=== PATIENT | female | born 1945 | race Caucasian/White ===

== ENCOUNTER 2024-03-28 10:01 | Emergency (ER) | payer MEDICARE, OTHER, SELFPAY ==
[2024-03-28 10:12] VITALS: BP 123/78
[2024-03-28 11:15] VITALS: BMI 28.0
[2024-03-28 11:19] VITALS: BP 141/68
[2024-03-28 12:00] VITALS: BP 126/64
--- NOTE | 2024-03-28 12:57 | ED.GENMED ---
History of Present Illness
General
Chief Complaint: Head Injury
Source: patient
Exam Limitations: none
Time Seen by Provider: 03/28/24 11:00
Nursing documentation reviewed up to this point in time: agreed with
History of Present Illness
History of Present Illness:
78-year-old female presenting to the emergency department 2 days after a trip and fall where she hit her head did not lose consciousness has had some mild ongoing headache and nausea. She was seen in urgent care earlier today but sent to the ER for
further assessment. Denies any numbness weakness neck pain not on blood thinners.
Past History
Past History
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
ED Past Surgical History: Bowel resection (Sigmoidectomy), Cholecystectomy and Gynecological (Hysterectomy and fallopian tubes removed)
Social History
Tobacco: Non-smoker
Alcohol: Occasional
Personal:
Living: with family
Review of Systems
Review of Systems
Allergies reviewed?: Yes
All Other Systems: ROS reviewed and negative except as documented in HPI and ROS
Phy Exam
Physical Exam
Physical Exam:
GENERAL: Alert , in no apparent distress
EYE: pupils equal and reactive
NECK: Supple, no significant adenopathy.
ENT: o/p clr, mmm.
CARDIAC: Regular rate and rhythm .
LUNGS: Clear breath sounds bilaterally, no acute respiratory distress, no wheezes/rales/rhonchi
ABDOMEN: Soft, without focal tenderness, no r/g, no cvat
NEUROLOGICAL: Alert and oriented, no focal neuro deficits
SKIN: Warm and dry, skin intact.
MUSCULOSKELETAL: No edema, well perfused.
PSYCH: Normal and appropriate interaction.
Course
Orders/Labs/Results
Orders:
Orders
03/28/24 11:11
CT Head W/o Iv Contrast Urgent
Comment:
Reason For Exam: fall hit face
Vital Signs
Initial and Last Documented VS:
Initial Vital Signs
Temp Pulse Resp BP Pulse Ox
98.3 F 70 22 123/78 98
03/28/24 10:12 03/28/24 10:12 03/28/24 10:12 03/28/24 10:12 03/28/24 10:12
Last Documented Vital Signs
Temp Pulse Resp BP Pulse Ox
98.3 F 61 13 130/70 97
03/28/24 10:12 03/28/24 13:00 03/28/24 13:00 03/28/24 13:00 03/28/24 13:00
MDM/Problems Addressed
MDM/Problems Addressed:
78f coming in 2 days after trip and fall. Well appearing here. Not on thinners. No major trauam to face, small scrap to nasal bridge, no nasal septal hematoma. CT neg. Noevidence of emergent injury. Stable for DC
*Critical Care Note
Total Time (30-74mins, 75-104mins- exclusive of procedures): Not Applicable
ED Attending Note
-
Portions of this chart may have been created with voice recognition software.� Occasional wrong word or��sound alike� substitutions may have occurred due to the inherent limitations of voice recognition software.
Discharge Plan
Departure
Patient Disposition: Home (Routine Discharge)
Date of Disposition: 03/28/24
Time of Disposition: 12:57
Patient with high blood pressure during this ER visit?: No
Condition: Good
Covid-19: Not Applicable
Discharge Problem:
Fall, Head injury
Instructions: Head Injury in Adults (DC)
Prescriptions:
No Action
fluoxetine [Prozac] 40 MG capsule
80 mg PO DAILY
omeprazole 40 MG capsule,delayed release(DR/EC)
40 mg PO DAILYPRN PRN (Reason: GERD)
fosinopril [Monopril] 40 MG tablet
40 mg PO DAILY
ibuprofen 200 MG tablet
200 mg PO Q4HPRN PRN (Reason: HEADACHE)
B-complex with vitamin C 1 CAPLET tablet
1 cap PO DAILY
multivitamin with folic acid [Tab-A-Soco] 1 TABLET tablet
1 tab PO DAILY
fluticasone propionate 1 SPRAY spray,suspension
1 spray intranasal DAILYPRN PRN (Reason: ALLERGIES)
loratadine 10 MG tablet
10 mg PO DAILYPRN PRN (Reason: ALLERGIES)
Referrals:
Marcia Velasquez MD [Family Provider] -
Activity Restrictions/Additional Instructions:
you came to the ER with concerns of head injury. your Ct was normal. Return for any new or worsening issues.
Interventions
Interventions:
*Risk Screen - Suicide Last Done: 03/28/24 10:17
*General Assessment Last Done: 03/28/24 10:17
*Neglect/Abuse Screening Last Done: 03/28/24 10:17
ED- Fall Risk Assessment Last Done: 03/28/24 13:19
*ED COVID-19 Vaccine History Last Done: 03/28/24 11:16
*Nursing Disposition Last Done: 03/28/24 13:19
ED- Neurological Assessment Last Done: 03/28/24 11:19
ED-Skin Assessment Last Done: 03/28/24 11:19
Discharge Date and Time
Discharge Date/Time: 03/28/24 13:20
Print Language: URDU
[2024-03-28 13:00] VITALS: BP 130/70
== END 2024-03-28 13:20 | disposition home or self-care (01) ==
LOC: EMR 10:01
PROVIDERS: EMERGENCY PHYSICIAN Emergency Medicine; FAMILY PHYSICIAN Internal Medicine
DX: S09.90XA Unspecified injury of head, initial encounter (principal); W01.0XXA Fall on same level from slipping, tripping and stumbling without subsequent striking against object, initial encounter; I10 Essential (primary) hypertension
CPT/HCPCS: 99284; 70450

== ENCOUNTER → 2024-10-08 07:35 | Outpatient (REF) | payer MEDICARE, OTHER, SELFPAY ==
[2024-10-08 09:56] LABS: % Basophils 0.7 % (0-2); % Eosinophils 2.7 % (0-6); % Immature Granulocytes 0.6 % (0-0.5); % Monocytes 10.6 % (1.7-9.3); % Neutrophils 58.4 % (42.2-75.2); Absolute Basophils 0.1 10^3/uL (0-0.2); Absolute Eosinophils 0.2 10^3/uL (0-0.7); Absolute Lymphocytes 1.8 10^3/uL (1.2-3.4); Absolute Monocytes 0.7 10^3/uL (0.1-0.6); Absolute Neutrophils 3.9 10^3/uL (1.4-6.5); Hematocrit 42.3 % (37.0-47.0); Hemoglobin 13.6 g/dL (12.0-16.0); Mean Corp Hgb Conc. 32.2 g/dL (33.0-37.0); Mean Corpuscular Hgb 29.2 pg (27.0-31.0); Mean Corpuscular Volume 90.8 fL (81.0-99.0); Nucleated Red Blood Cells % 0 %; Platelet Count 285 10^3/uL (130-400); Red Blood Cell Count 4.66 10^6/uL (4.20-5.40); Red Cell Dist. Width 13.2 % (11.5-14.5); White Blood Cell Count 6.7 10^3/uL (4.8-10.8)
[2024-10-08 10:34] LABS: ALT (SGPT) 21 U/L (0-35); AST (SGOT) 34 U/L (14-36); Albumin 4.1 g/dl (3.5-5.0); Alkaline Phosphatase 102 U/L (38-126); Blood Urea Nitrogen 24 mg/dl (7-17); Calcium 9.3 mg/dl (8.4-10.2); Carbon Dioxide 29 mmol/L (22-30); Chloride 104 mmol/L (98-107); Glucose 100 mg/dl (70-99); HDL Cholesterol 68 mg/dl; LDL Cholesterol, Calculated 153 mg/dl; Potassium 4.3 mmol/L (3.5-5.1); Sodium 142 mmol/L (135-145); Total Bilirubin 0.2 mg/dl (0.2-1.3); Total Cholesterol 241 mg/dl (50-199); Total Protein 6.6 g/dl (6.3-8.2); Triglyceride 104 mg/dl (10-149); Very Low Density Lipoprotein 20 mg/dl (0-30); eGFR > 60.00
[2024-10-08 10:52] LABS: TSH 1.17 uIU/ml (0.47-4.68)
[2024-10-08 12:45] LABS: Glycohemoglobin (HgbA1c) 5.5 % (4.0-5.6)
== END ==
LOC: PAVMRI 07:35
PROVIDERS: ATTENDING PHYSICIAN Internal Medicine
DX: F41.8 Other specified anxiety disorders (principal); E78.5 Hyperlipidemia, unspecified; R53.83 Other fatigue; R73.01 Impaired fasting glucose
CPT/HCPCS: 36415; 70553; 80053; 80061; 83036; 84443; 85025; A9575

== ENCOUNTER → 2024-12-09 07:42 | Outpatient (REF) | payer MEDICARE, OTHER, SELFPAY | LOC: HWRAD 07:42 | PROVIDERS: ATTENDING PHYSICIAN Internal Medicine | DX: Z12.31 Encounter for screening mammogram for malignant neoplasm of breast (principal); M81.0 Age-related osteoporosis without current pathological fracture | CPT/HCPCS: 77063; 77067; 77080 ==

== ENCOUNTER → 2025-04-15 09:48 | Outpatient (REF) | payer MEDICARE, OTHER, SELFPAY ==
[2025-04-15 13:56] LABS: Glycohemoglobin (HgbA1c) 5.3 % (4.0-5.6)
[2025-04-15 14:15] LABS: Folate 12.6 ng/ml (2.76-20); Vitamin B12 893 pg/ml (239-931)
== END ==
LOC: HWLAB 09:48
PROVIDERS: ATTENDING PHYSICIAN Internal Medicine
DX: R73.9 Hyperglycemia, unspecified (principal); R27.8 Other lack of coordination
CPT/HCPCS: 36415; 82607; 82746; 83036; 84155; 84165

== ENCOUNTER → 2025-08-24 18:31 | Outpatient (REF) | payer MEDICARE, OTHER, SELFPAY | LOC: MRI 18:31 | PROVIDERS: ATTENDING PHYSICIAN Orthopaedic Surgery; FAMILY PHYSICIAN Internal Medicine | DX: M54.16 Radiculopathy, lumbar region (principal) | CPT/HCPCS: 72148 ==